=== PATIENT | female | born 1975 | race Caucasian/White ===

== ENCOUNTER 2017-07-15 18:31 | Emergency (ER) | payer MEDICAID ==
[~2017-07-15] VITALS: Ht 162.6 cm; Wt 76.2 kg
[2017-07-15 18:37] VITALS: Ht 162.6 cm; Wt 76.2 kg
[2017-07-15 19:18] LABS: BASOPHIL % 0.4 % (0-2); PLATELET COUNT 382 x10^3mcL (130-400)
[2017-07-15 19:19] LABS: RED CELL DISTRIBUTION WIDTH 20.5 % (11.5-14.5)
[2017-07-15 19:23] LABS: microscopic required? YES; urine erythrocyte 2+ (NEGATIVE)
[2017-07-15 19:46] LABS: CALCIUM 8.4 mg/dL (8.5-10.1); CARBON DIOXIDE 25.5 mmol/L (21-32); CHLORIDE SERUM 138 mmol/L (98-107); CREATININE SERUM 0.6 mg/dL (0.6-1.0); GFR1 > 60 mL/min; GLUCOSE SERUM 102 mg/dL (74-106); POTASSIUM SERUM 3.6 mmol/L (3.5-5.1); SODIUM SERUM 139 mmol/L (136-145)
[2017-07-15 19:50] LABS: ALBUMIN 3.3 g/dL (3.4-5.0); ALKALINE PHOSPHATASE 73 U/L (46-116); ALT/SGPT 23 U/L (14-59); AMYLASE 66 U/L (25-115); AST/SGOT 14 U/L (15-37); BILIRUBIN TOTAL 0.3 mg/dL (0.20-1.00); LIPASE 75 IU/L (73-393); TOTAL PROTEIN, SERUM 7.3 g/dL (6.4-8.2)
[2017-07-15 21:20] VITALS: BP 121/72
== END 2017-07-15 21:20 | disposition home or self-care (01) ==
LOC: ED 18:31
PROVIDERS: Emergency Medicine
DX: K59.00 Constipation, unspecified (principal); R31.29 Other microscopic hematuria; F41.9 Anxiety disorder, unspecified; R00.2 Palpitations
CPT/HCPCS: J1885; J2405